=== PATIENT | male | born 1940 | race Caucasian/White ===

== ENCOUNTER → 2018-04-13 | Day surgery (SDC) | payer MEDICARE, OTHER ==
[~2018-04-13] MED LIST: BUPIVACAINE HCL PF 0.25% 30 ML VIAL ONE; LACTATED RINGER'S 1000 ML INJ 1,000 ML ONE; MIDAZOLAM HCL 2 MG/2 ML VIAL ONE; PROPOFOL 200 MG/20 ML AMP IV ONE; ceFAZolin INJ 1,000 MG VIAL ONE
--- NOTE | 2018-04-13 14:56 | PD.OP ---
cc: Matt Abarca MD Operative Report Date of Surgery: April 13, 2018 Preoperative Diagnosis: Left inguinal hernia Cirrhosis and ascites Postoperative Diagnosis: Left indirect inguinal hernia, left indirect inguinal hernia Cirrhosis and ascites Procedure: Open repair left inguinal hernia with mesh, placement PIC O dressing Anesthesia: General Surgeon: Matt Abarca Shoemaker Custom(s): [employer] Operation and Findings: This procedure was assisted by my nurse practitioner. The skill set of an [employer]ICAL [employer] was medically necessary due to the difficulty and complexity associated with a chronic indirect inguinal hernia patient with cirrhosis and ascites. Appropriate visualization and competent assistance allowed for improved safety and efficiency in the completion of the procedure. avionics electronics technician was at the back table providing appropriate instrumentation while the nurse practitioner directly assisted me through the entirety of the procedure. Indications for procedure this is a very pleasant 78-year-old gentleman with known liver disease, cirrhosis, ascites, who is developed a symptomatic painful left inguinal hernia. There was some question whether or not a hydrocele was involved. Preoperatively exam was suggestive of a hernia sac filled with ascitic fluid that was reducible. Due to the increasing symptoms of pain and discomfort, the patient and his agreed to proceed with the surgery despite the relative increased risk due to his liver disease. Intraoperative findings Chronic thin-walled indirect inguinal hernia sac extending down to the level of the left testicle filled with ascites. Thin-walled direct hernia defect filled with ascites. No evidence of spermatic cord lipoma. Estimated blood loss less than 5 mL. Description of procedure in detail Patient was identified as Rik Cortes, taken to the operating room and placed in a supine position. Following induction of adequate general anesthesia the patient's left groin was prepped and draped in usual sterile fashion with Betadine. A timeout procedure was performed. Following completion timeout procedure everyone's satisfaction within the room proposed left groin incision was made with a marking pen. It was infiltrated with local anesthetic. The incision was carried out the scalpel. Hemostasis was controlled with electrocautery. Dissection continued posteriorly through a thickened Vonnie's fascia to the level of the external oblique fascia. More local anesthetic was placed beneath the external oblique fascial fibers. There were opened in their direction after instillation of local anesthetic using a scalpel and Metzenbaum scissors. Underlying branches of the ilioinguinal and iliohypogastric nerves were identified and avoided. The spermatic cord and its contents were carefully from the level of the pubic tubercle and isolated with a [place] drain. Anterior cremasteric fibers were divided with electrocautery. The anterior medial surface was examined in the hernia sac was easily identified due to the presence of ascites. Careful dissection from surrounding cord structures was performed in the hernia sac was isolated. In dissecting it free of distal attachments several defects in the wall the hernia sac occurred allowing for decompression of ascites which was controlled with a suction device. The distal sac was adherent to the testicle which was brought into the surgical view and the distal sac relieved from the testicle. The testicle was returned to its normal anatomic position the hernia sac was then carefully from the surrounding cord structures to the level of the internal inguinal ring. It was crossclamped and space with a hemostat and ligated with a 2-0 Vicryl tie. The distal sac was amputated and discarded. There was no evidence of ascitic leak at this time. Medially the inguinal floor was absent in protrusion of a thin-walled direct hernia sac was identified and reduced with a Ray-Kendall sponge. From a 3 x 6" piece of atrium lightweight polypropylene mesh piece of mesh was customized in size and sutured over the inguinal floor using interrupted 0 Ethibond sutures. Sutures were placed above and below the pubic tubercle, into Hardik's ligament and the shelving edge of the inguinal ligament inferiorly and laterally into the internal oblique fascia superiorly and medially taking care to avoid the ileal hypogastric nerve branch. Slit was cut into the mesh laterally allow for passage of the spermatic cord and the tails of the mesh were approximately lateral to the spermatic cord taking care not to strangle it with a single 0 Ethibond suture. Irrigation ensued. At this point a weeping of ascites was identified. The etiology of the weeping of the ascites was not able to be discovered. Presumably it was coming from where the 2-0 Vicryl tie went across the indirect inguinal hernia sac. Ray-Kendall some pressure were held for several minutes. Options for percutaneous drainage of the peritoneal cavity were discussed and thought over and decided this was not the opportune time to do that. Local anesthetic was placed into the operative field. Observation for further ascitic leak was made and none was seen. The external oblique fascia was closed in running fashion with 3-0 Vicryl. 3-0 Vicryl was placed in Vonnie' s fascia. Skin was approximated running 4-0 Monocryl subcuticular stitch. Dressings were applied with a picot dressing which was selected due to the complex nature of this patient's wound. Was placed to suction without evidence of leak. Patient was transported to PACU in stable condition. Sponge needle and instrument counts were correct at the end of the case. Matt Abarca MD April 13, 2018 14:56
== END | disposition home or self-care (01) ==
LOC: ESDC 11:27
PROVIDERS: ATTEND Surgery Trauma Surgery
DX: K40.90 Unilateral inguinal hernia, without obstruction or gangrene, not specified as recurrent (principal); R18.8 Other ascites; K74.60 Unspecified cirrhosis of liver
CPT/HCPCS: 00830; 49505; C1781; J0690; J3010; J7120; J2250